=== PATIENT | male | born 1965 | race African-American/Black ===

== ENCOUNTER → 2018-01-22 11:57 | Outpatient (CLI) | payer BC, SELFPAY ==
[2018-01-22 14:17] LABS: ALB/GLOB Ratio 1.1 RATIO (0.9-2.4); AST(SGOT) 23 U/L (15-37); Alanine Aminotransfer ALT/SGPT 44 U/L (16-61); Albumin, Serum 4.2 g/dL (3.2-5.0); Alkaline Phosphatase 103 U/L (45-117); Anion Gap 10 (5-15); BUN 12 mg/dL (7-18); BUN/Creat Ratio 11.9 RATIO (10-20); Calcium,Total 9.6 mg/dL (8.5-10.1); Chloride 97 mmol/L (98-107); Cholesterol 199 mg/dL (200); Creatinine, Serum 1.01 mg/dL (0.70-1.30); EST Glomerular Filtration Rate 82 mL/min (>60); Est Glom Filt Rate - Afr Amer 100 mL/min (>60); GGTP 157 U/L (15-85); Globulin 3.8 g/dL (2.2-4.2); Glucose 83 mg/dL (74-106); High Density Lipoprotein 75 mg/dL; Potassium 4.1 mmol/L (3.5-5.1); Sodium Level 138 mmol/L (136-145); Triglycerides 170 mg/dL; Very Low Density Lipoprotein 34 mg/dL (5-40)
[2018-01-22 14:33] LABS: Microalbumin,Random Urine < 5.0 mg/L (NO RANGE EST.)
== END ==
PROVIDERS: Family Provider Family Medicine; PCP Family Medicine; Visit Provider Family Medicine
DX: I10 Essential (primary) hypertension (principal); R79.89 Other specified abnormal findings of blood chemistry; R94.5 Abnormal results of liver function studies
CPT/HCPCS: 36415; 80053; 80061; 82043; 82570; 82977

== ENCOUNTER 2019-05-18 12:05 | Emergency (ER) | payer BC, SELFPAY ==
[2019-05-18 12:05] VITALS: BP 180/112; PULSE 78; RESP 16; TEMP 36.7; O2SAT 97; BMI 31.3
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
--- NOTE | 2019-05-18 12:28 | EKG12_ITS ---
Test Reason : CP Blood Pressure : / mmHG Vent. Rate : 066 BPM Atrial Rate : 066 BPM P-R Int : 156 ms QRS Dur : 102 ms QT Int : 426 ms P-R-T Axes : 015 -14 005 degrees QTc Int : 446 ms Normal sinus rhythm Normal ECG Confirmed by JAMAR OLIVARES, PRABHAKAR ([id number]), newspaper editor ANDREY COOPER ([id number]) on 05/21/2019 11:38:00 AM Referred By: SERGEY Confirmed By:PRABHAKAR ROLDAN MD
[2019-05-18 12:42] LABS: Absolute Lymphocyte Count 1.71 X10^3/uL (0.83-4.51); Absolute Neutrophil Count 3.5 X10^3/uL (2.0-7.7); Basophil# 0.03 X10^3/uL; Basophil% 0.5 % (0-1); Eosinophil# 0.05 X10^3/uL; Eosinophils% 0.9 % (0-5); Hematocrit 40.9 % (40-54); Hemoglobin 13.9 g/dL (13.0-16.5); Lymphocyte # 1.71 X10^3/ul (4.0); Lymphocyte % 29.7 % (19-41); Mean Corpuscular Hgb 32.2 pg (27.0-32.0); Mean Corpuscular Volume 94.7 fL (80-94); Mean Platelet Vol. 9.7 fl (6.2-12.0); Monocyte# 0.48 X10^3/uL; Monocyte% 8.3 % (0-10); NRBC Flagged by Analyzer 0 % (0-5); Neutrophil # 3.46 X10^3/uL (2.7-7.7); Neutrophil % 60.3 % (47-70); Platelet Count 195 K/mm3 (150-450); RBC Distribution Width CV 11.6 % (11.6-14.6); RBC Distribution Width SD 40.3 fl (35.1-43.9); Red Blood Count 4.32 M/mm3 (4.6-6.2); White Blood Count 5.8 K/mm3 (4.4-11.0)
[2019-05-18 12:46] VITALS: BP 165/123
[2019-05-18 12:57] LABS: Anion Gap 8 (5-15); BUN 10 mg/dL (7-18); BUN/Creat Ratio 13.1 RATIO (10-20); Calcium,Total 9.3 mg/dL (8.5-10.1); Chloride 103 mmol/L (98-107); Creatinine, Serum 0.76 mg/dL (0.70-1.30); EST Glomerular Filtration Rate 114 mL/min (>60); Est Glom Filt Rate - Afr Amer 138 mL/min (>60); Estimated Creatinine Clearance 105.09 ml/min; Glucose 92 mg/dL (74-106); Potassium 3.6 mmol/L (3.5-5.1); Sodium Level 139 mmol/L (136-145)
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
--- NOTE | 2019-05-18 14:16 | ED.DEP ---
ED Disposition - Plan for ED Patient: Instructions: Neck Sprain/Strain Prescriptions: Oxycodone HCl/Acetaminophen [Percocet 5/325] 1 tab PO Q6H PRN PRN 3 Days #12 tab PRN Reason: Pain Prescription Printed Referrals: Alexandre Hanna MD [Primary Care Provider] -
[2019-05-18 14:21] VITALS: BP 191/113; PULSE 78; RESP 16; O2SAT 98
--- NOTE | 2019-05-18 14:23 | ED.RN ---
PT STATES HE HAS HYPERTENSION, IS SUPPOSED TO TAKE A MED BUT STATES I READ THE SIDE EFFECTS AND AM NOT TAKING THAT STUFF. AND THIS RN EDUCATED ON RISKS OF HYPERTENSION SEVERAL TIMES, PT VOICES UNDERSTANDING, STATES HE WILL FOLLOW UP WITH PCP, DECLINES BP MEDS IN ED.
== END 2019-05-18 14:25 | disposition home or self-care (01) ==
LOC: ED 12:27
PROVIDERS: Emergency Provider Emergency Medicine; Family Provider Family Medicine; PCP Family Medicine
DX: S06.0X0A Concussion without loss of consciousness, initial encounter (principal); S29.8XXA Other specified injuries of thorax, initial encounter; V89.2XXA Person injured in unspecified motor-vehicle accident, traffic, initial encounter; Y93.89 Activity, other specified; F17.200 Nicotine dependence, unspecified, uncomplicated
CPT/HCPCS: 70450; 71260; 72125; 74177; 80048; 84484; 85025; 93005; 99283; Q9967; A4216

== ENCOUNTER → 2020-03-15 09:48 | Outpatient (CLI) | payer BC, SELFPAY ==
[2020-03-15 13:34] LABS: HIV - WCH Non-Reactive (Nonreactive); Hepatitis B Surface Antigen Non-Reactive (Nonreactive)
[2020-03-15 15:50] LABS: BUN 6 mg/dL (7-18); Glucose 88 mg/dL (74-106)
[2020-03-15 15:51] LABS: ALB/GLOB Ratio 0.7 RATIO (0.9-2.4); AST(SGOT) 44 U/L (15-37); Alanine Aminotransfer ALT/SGPT 100 U/L (16-61); Albumin, Serum 3.3 g/dL (3.2-5.0); Alkaline Phosphatase 171 U/L (45-117); Anion Gap 7 (5-15); Calcium,Total 9.7 mg/dL (8.5-10.1); Chloride 104 mmol/L (98-107); Cholesterol 174 mg/dL (200); Creatinine, Serum 0.88 mg/dL (0.70-1.30); Globulin 4.5 g/dL (2.2-4.2); Potassium 3.8 mmol/L (3.5-5.1); Protein, Total 7.8 g/dL (6.4-8.2); Sodium Level 138 mmol/L (136-145); Triglycerides 140 mg/dL; Very Low Density Lipoprotein 28 mg/dL (5-40)
[2020-03-15 15:52] LABS: High Density Lipoprotein 59 mg/dL
[2020-03-15 16:17] LABS: BUN/Creat Ratio 6.9 RATIO (10-20); EST Glomerular Filtration Rate 97 mL/min (>60); Est Glom Filt Rate - Afr Amer 117 mL/min (>60)
[2020-03-17 03:07] LABS: Chlamydia By Nucleic Acid AMP Negative (Negative); Gonococcus By Nucleic Acid AMP Negative (Negative)
[2020-03-17 05:05] LABS: Hepatitis B Core AB IgM Negative (Negative)
[2020-03-18 05:23] LABS: Rapid Plasmin Reagin (RPR) NONREACTIVE (NONREACTIVE)
== END ==
PROVIDERS: PCP Family Medicine; Referring Provider Family Medicine; Visit Provider Family Medicine
DX: R97.20 Elevated prostate specific antigen [PSA] (principal); R79.89 Other specified abnormal findings of blood chemistry; Z71.1 Person with feared health complaint in whom no diagnosis is made; Z13.220 Encounter for screening for lipoid disorders
CPT/HCPCS: 36415; 80053; 80061; 84153; 86592; 86703; 86705; 87340; 87491; 87591; G0103

== ENCOUNTER → 2020-04-14 09:47 | Outpatient (CLI) | payer BC, SELFPAY ==
[2020-04-14 12:49] LABS: AST(SGOT) 10 U/L (15-37); Alanine Aminotransfer ALT/SGPT 35 U/L (16-61); Alkaline Phosphatase 105 U/L (45-117); Bilirubin, Direct 0.19 mg/dL (0.00-0.30); Globulin 3.6 g/dL (2.2-4.2); PSA,Total- Diagnostic 1.03 ng/mL (0.0-4.0); Protein, Total 7.6 g/dL (6.4-8.2)
== END ==
PROVIDERS: PCP Family Medicine; Referring Provider Family Medicine; Visit Provider Family Medicine
DX: R79.89 Other specified abnormal findings of blood chemistry (principal); R97.20 Elevated prostate specific antigen [PSA]
CPT/HCPCS: 36415; 80076; 84153

== ENCOUNTER → 2020-05-25 15:26 | Outpatient (CLI) | payer BC, SELFPAY ==
[2020-05-25 18:14] LABS: Anion Gap 7 (5-15); BUN 37 mg/dL (7-18); BUN/Creat Ratio 21.5 RATIO (10-20); Calcium,Total 9.6 mg/dL (8.5-10.1); Chloride 103 mmol/L (98-107); Creatinine, Serum 1.72 mg/dL (0.70-1.30); EST Glomerular Filtration Rate 44 mL/min (>60); Est Glom Filt Rate - Afr Amer 54 mL/min (>60); Glucose 86 mg/dL (74-106); Potassium 3.9 mmol/L (3.5-5.1); Sodium Level 136 mmol/L (136-145)
== END ==
PROVIDERS: PCP Family Medicine; Visit Provider Family Medicine
DX: I10 Essential (primary) hypertension (principal)
CPT/HCPCS: 36415; 80048

== ENCOUNTER → 2020-06-28 16:04 | Outpatient (CLI) | payer BC, SELFPAY ==
[2020-06-28 18:05] LABS: Anion Gap 5 (5-15); BUN 17 mg/dL (7-18); BUN/Creat Ratio 17.5 RATIO (10-20); Calcium,Total 9.5 mg/dL (8.5-10.1); Chloride 104 mmol/L (98-107); Creatinine, Serum 0.97 mg/dL (0.70-1.30); EST Glomerular Filtration Rate 85 mL/min (>60); Est Glom Filt Rate - Afr Amer 103 mL/min (>60); Glucose 87 mg/dL (74-106); Potassium 4.2 mmol/L (3.5-5.1); Sodium Level 139 mmol/L (136-145)
== END ==
PROVIDERS: PCP Family Medicine; Visit Provider Family Medicine
DX: N18.9 Chronic kidney disease, unspecified (principal)
CPT/HCPCS: 36415; 80048

== ENCOUNTER → 2021-05-25 16:18 | Outpatient (CLI) | payer BC, SELFPAY ==
[2021-05-25 19:20] LABS: Chlamydia Trachomatis by PCR Negative (Negative); Neisserai gonorrhoeae by PCR Negative (Negative); Probe Check PASS; Sample Adequacy Control PASS; Specimen Processing Control PASS
[2021-05-26 08:54] LABS: HIV - WCH Non-Reactive (Nonreactive); Syphilis Antibodies Non-reactive
[2021-05-27 13:08] LABS: Hepatitis B Core Ab Total Negative (Negative); Hepatitis Be Ab Negative (Negative)
[2021-05-27 17:07] LABS: Hepatitis B Core AB IgM Negative (Negative)
== END ==
LOC: MFPLAB 16:26
PROVIDERS: PCP Family Medicine; Referring Provider Family Medicine; Visit Provider Family Medicine
DX: Z20.2 Contact with and (suspected) exposure to infections with a predominantly sexual mode of transmission (principal)
CPT/HCPCS: 36415; 86703; 86704; 86705; 86707; 86780; 87491; 87591

== ENCOUNTER → 2021-06-02 14:03 | Outpatient (CLI) | payer BC, SELFPAY ==
[2021-06-02 15:25] LABS: ALB/GLOB Ratio 0.9 RATIO (0.9-2.4); AST(SGOT) 30 U/L (15-37); Alanine Aminotransfer ALT/SGPT 52 U/L (16-61); Albumin, Serum 3.7 g/dL (3.2-5.0); Alkaline Phosphatase 101 U/L (45-117); Anion Gap 8 (5-15); BUN 8 mg/dL (7-18); BUN/Creat Ratio 10.2 RATIO (10-20); Calcium,Total 8.9 mg/dL (8.5-10.1); Chloride 97 mmol/L (98-107); Cholesterol 178 mg/dL (200); Creatinine, Serum 0.78 mg/dL (0.70-1.30); EST Glomerular Filtration Rate 109 mL/min (>60); Est Glom Filt Rate - Afr Amer 132 mL/min (>60); Glucose 93 mg/dL (74-106); High Density Lipoprotein 83 mg/dL; PSA,Total- Diagnostic 0.62 ng/mL (0.0-4.0); Potassium 3.6 mmol/L (3.5-5.1); Protein, Total 7.7 g/dL (6.4-8.2); Sodium Level 133 mmol/L (136-145); Triglycerides 139 mg/dL; Very Low Density Lipoprotein 28 mg/dL (5-40)
== END ==
PROVIDERS: PCP Family Medicine; Referring Provider Family Medicine; Visit Provider Family Medicine
DX: I10 Essential (primary) hypertension (principal); R97.20 Elevated prostate specific antigen [PSA]
CPT/HCPCS: 36415; 80053; 80061; 84153

== ENCOUNTER → 2021-11-23 | Outpatient (CLI) | payer BC, SELFPAY ==
[2021-11-23 17:49] LABS: ALB/GLOB Ratio 1.2 RATIO (0.9-2.4); AST(SGOT) 17 U/L (15-37); Alanine Aminotransfer ALT/SGPT 38 U/L (16-61); Albumin, Serum 4.1 g/dL (3.2-5.0); Alkaline Phosphatase 94 U/L (45-117); Anion Gap 6 (5-15); BUN 25 mg/dL (7-18); BUN/Creat Ratio 20.8 RATIO (10-20); Calcium,Total 9.6 mg/dL (8.5-10.1); Chloride 107 mmol/L (98-107); EST Glomerular Filtration Rate 67 mL/min (>60); Est Glom Filt Rate - Afr Amer 81 mL/min (>60); Globulin 3.4 g/dL (2.2-4.2); Glucose 106 mg/dL (74-106); Potassium 4.1 mmol/L (3.5-5.1); Protein, Total 7.5 g/dL (6.4-8.2); Sodium Level 141 mmol/L (136-145)
== END | disposition home or self-care (01) ==
LOC: MFPLAB 15:54
PROVIDERS: PCP Family Medicine; Visit Provider Family Medicine
DX: I10 Essential (primary) hypertension (principal)
CPT/HCPCS: 36415; 80053

== ENCOUNTER → 2022-03-20 | Outpatient (CLI) | payer BC, SELFPAY ==
[2022-03-20 10:22] LABS: AST(SGOT) 20 U/L (15-37); Alanine Aminotransfer ALT/SGPT 51 U/L (16-61); Albumin, Serum 3.7 g/dL (3.2-5.0); Alkaline Phosphatase 104 U/L (45-117); Bilirubin, Direct 0.07 mg/dL (0.00-0.30); Globulin 3.7 g/dL (2.2-4.2); Protein, Total 7.4 g/dL (6.4-8.2)
[2022-03-20 10:59] LABS: Hepatitis C Antibody Non-Reactive (Nonreactive)
== END | disposition home or self-care (01) ==
LOC: MFPLAB 08:35
PROVIDERS: PCP Family Medicine; Referring Provider Family Medicine; Visit Provider Family Medicine
DX: Z20.5 Contact with and (suspected) exposure to viral hepatitis (principal)
CPT/HCPCS: 36415; 80076; 86803

== ENCOUNTER 2022-12-25 11:02 | Emergency (ER) | payer BC, SELFPAY ==
[2022-12-25 11:02] VITALS: BP 204/129; PULSE 79; RESP 16; TEMP 36.3; O2SAT 100; BMI 32.5
--- NOTE | 2022-12-25 11:42 | ED.VIS.BACK ---
HPI History of Present Illness Chief Complaint: Back Informant: patient and spouse/S.O. Onset/Context/Timing Onset: Days Context: Gradual Onset Timing: Continuous Quality: Sharp Location: Buttock and Left Leg Current Severity: Moderate Maximum Severity: Moderate Worsened by: improves with Movement Relieved by: Remaining Still and - (Lying on his abdomen improves the pain.) Associated Symptoms Associated Symptoms: Radiation to Left Leg; Negative for Numbness, Tingling, Radiation to Right Leg, Fever, Abdominal Pain, Dysuria, Unable to Ambulate, Unable to Transfer, Urinary Retention, Urinary Incontinence, Constipation or Fecal Incontinence Narrative Narrative: 51-year-old male history of hypertension. States he has had surgery to his right knee for a prior quadriceps patellar tendon. His right knee has been giving him some discomfort so he has been gingerly walking on it and favoring his left leg. Said he believes he set himself up he started getting back pain now he has pain radiating down his left hamstring to his left foot. Denies any weakness or numbness. No back trauma. No fever. No bowel or bladder incontinence. No leg weakness or numbness. Prior similar symptoms: No Recent Illness/Hospitalization: No PFSH [facility] Medical History Hypertension Home Medications oxycodone-acetaminophen 5 mg-325 mg tablet (Percocet) 1 tab PO Q4H PRN pain 5 days #20 tabs 12/25/22 [Rx Last Taken Unknown] prednisone 20 mg tablet 40 mg (2 x 20 mg) PO DAILY 9 days #18 tabs 12/25/22 [Rx Last Taken Unknown] Allergy/AdvReac Type Severity Reaction Status Date / Time No Known Allergies Allergy Verified 12/25/22 11:04 Social History Smoking Status: Former smoker ROS ROS ED ROS Narrative Denies recent illness. Left buttock pain radiating down his foot. Review of Systems ROS Unobtainable: Denies due to encephalopathy Constitutional Constitutional ED: Denies chills or fever(s) Eyes Eyes: Denies blurry vision ENT ENT ED: Denies ear pain Cardiovascular Cardiovascular: Denies chest pain Respiratory/Chest Respiratory/Chest: Denies dyspnea Gastrointestinal Gastrointestinal: Denies abdominal pain, constipation, diarrhea, melena, nausea or vomiting Genitourinary Genitourinary ED: Denies dysuria or hematuria Musculoskeletal Musculoskeletal: Reports back pain; Denies arthralgias, myalgias or neck pain Integumentary Denies abscess Neurologic Neurologic: Denies headache(s) Psychiatric Psychiatric: Denies anxiety Endocrine Endocrinology: Denies cold intolerance Hematologic/Lymphatic Hematologic/Lymphatic: Denies easy bleeding or easy bruising Allergic/Immunologic Allergic/Immunologic ED: Denies mouth swelling or tongue swelling EXAM Physical Exam Narrative Exam Narrative: Well-appearing 57-year-old male. Lying flat in bed. Significant other at bedside. Vital signs are stable blood pressure elevated 204 129 out of the recheck. H EENT exam unremarkable. Neck nontender. Lungs clear to auscultation bilaterally. Heart regular rate and rhythm rate about 80 no murmur. Chest wall nontender. Abdomen soft nontender. No peritoneal signs. No pulsatile mass. Moving all 4 extremities. Neurovascular intact. Positive straight leg raise on the left. Dorsi plantarflexion intact. 5 out of 5 strength. No cauda equina. No saddle anesthesia. Normal medial thigh sensation bilaterally. Normal sensation of both lower legs. Back exam he is tenderness over his left SI joint left buttock. The spine itself is nontender. There is no redness or warmth. No bruising or signs of trauma. Neurologic exam is awake and alert with no focal motor or sensory deficits. NIH is 0. Const Vital Signs: 12/25/22 11:02 12/25/22 11:02 Temperature 97.4 F L Temperature Source Temporal Pulse Rate 79 Respiratory Rate 16 Blood Pressure 204/129 H Blood Pressure Mean 154 Pulse Ox 100 Oxygen Delivery Method Room Air Positive well nourished and well developed; Negative for cachectic, contractures or unkempt General Appearance ED: well developed and NAD; Negative for unkempt, cachectic, contractures or pallor Nutritional Appearance: Negative for cachectic HEENT Reports moist mucous membranes; Denies dry mucous membranes Negative for trauma or tenderness Mouth ED: No dry mucous membranes Mouth: No dry mucous membranes Eyes PERRL and EOMs intact bilaterally General Eye ED: Negative for pale conjunctiva, scleral icterus or other Neck no lymphadenopathy, supple and no JVD General: Negative for tenderness Thyroid: Negative for other Resp normal respiratory effort and clear to auscultation bilaterally Effort and Inspection: Negative for pain with movement Auscultation: Negative for rales, rhonchi, wheezes or diminished lung sounds Cardio regular rate, regular rhythm, S1 normal heart sound, S2 normal heart sound and no murmurs Palpation: Negative for palpable S3 Rate: Negative for bradycardia or tachycardic Rhythm: Negative for abnormal rhythm Bruits: Negative for other GI normal to inspection, nondistended, normoactive bowel sounds, soft to palpation, non-tender, non-distended and no masses Inspection: Negative for abdominal distention Auscultation: Negative for hyperactive bowel sounds Palpation: Negative for tender, guarding, mass or pulsatile mass Bladder / Kidney Exam: No other Back/Spine normal to inspection and no thoracic nor lumbar tenderness Back/Spine Narrative: Tenderness over left SI joint. Positive straight leg raise on the left. Both lower extremities have 5-5 motor strength. Dorsi plantarflexion.. No saddle anesthesia. General Back: Negative for CVA tenderness Cervical Spine: Negative for cervical spine tenderness and Negative for paracervical muscle tenderness Thoracic Spine / Upper Back: Negative for paraspinal muscle tenderness Lumbar Spine / Lower Back: straight leg raise positive - left; Negative for ROM limited or straight leg raise negative bilaterally Extremity normal to inspection and no clubbing, cyanosis or edema General Extremety ED: Negative for edema or tenderness General Extremity: Negative for edema Neuro oriented x3 and no sensory deficits noted Sensorium / Orientation: Negative for alert, confused, lethargic or stuporous Sensory Exam: No other Motor Exam: strength 5/5 throughout Psych mental status grossly normal Appearance: Negative for unkempt Attitude: No agitated Mood & Affect: Negative for depressed, sad or tearful Skin no rashes or lesions noted and no wounds General Skin Exam: Negative for jaundice or pallor Lesions: No lesion noted Rashes: No rashes noted Trauma: Negative for abrasion or puncture Wounds: Negative for wounds noted MDM MDM MDM Narrative Medical decision making narrative: 59-year-old male with atraumatic left buttock pain radiating down to his left foot consistent with acute sciatica. No loss of strength or sensation in his lower legs. He does not need any imaging there is been no trauma. No fever. We will treat his acute left sciatica. Prednisone 60 mg here 40 mg a day for 9 days. Percocet for pain 20 no refill. Follow-up with not improving. Return if worse. History & Record Review Discussion w/independent historian: Patient and Family Additional record(s) reviewed:: Prior inpatient record, Prior outpatient record, Prior ED visit and Prior labs Discharge Plan Triage Chief Complaint: Back ED Provider: Wayne Caceres Dx/Rx/DC Orders Clinical Impression: Left sided sciatica Instructions: ED Sciatica Prescriptions: New oxycodone-acetaminophen [Percocet] 5-325 mg tablet 1 tab PO Q4H PRN (Reason: pain) 5 Days Qty: 20 0RF prednisone 20 mg tablet 40 mg PO DAILY 9 Days Qty: 18 0RF Primary Care Provider: Alexandre Hanna Referrals: Alexandre Hanna MD [Primary Care Provider] - 1 Week if not improving Activity Restrictions/Additional Instructions: Prednisone 40 mg a day for the next 9 days starting tomorrow. Percocet for pain. Plenty of fluids and fiber to prevent constipation. No driving or use of alcohol while using the Percocet. Ice to your left posterior buttock area to help decrease inflammation. This should progressively improve follow-up with your doctor if not improving. Return if weakness in your legs or incontinence. Disposition Disposition: Home, Self Care
[2022-12-25 11:50] VITALS: BP 205/124
[2022-12-25] MEDS: Oxycodone/Apap 5/325 Tablet PO (11:59)
[2022-12-25] MEDS: predniSONE 20 MG Tablet 60 MG PO (11:59)
[2022-12-25 12:03] VITALS: BP 167/126; RESP 17
== END 2022-12-25 12:24 | disposition home or self-care (01) ==
LOC: ED 11:52
PROVIDERS: Emergency Provider Emergency Medicine; PCP Family Medicine; Visit Provider Emergency Medicine
DX: M54.32 Sciatica, left side (principal); Z87.891 Personal history of nicotine dependence
CPT/HCPCS: 99283

== ENCOUNTER 2023-01-01 13:42 | Emergency (ER) | payer BC, SELFPAY ==
[2023-01-01 13:43] VITALS: BP 221/141; PULSE 80; RESP 18; TEMP 36.3; O2SAT 97
--- NOTE | 2023-01-01 14:19 | RAD_ITS ---
STUDY: X-RAY - LUMBAR SPINE REASON FOR EXAM: Male, 57 years old. Worsening left-sided back pain. TECHNIQUE: 3 view(s) of the lumbar spine were obtained. COMPARISON: None FINDINGS: There is straightening of the normal lumbar lordosis. There is a mild levoscoliosis of the lumbar spine. There is a normal alignment of the vertebrae. There is multilevel endplate spondylosis of the lumbar vertebrae. There is multi-level degenerative disc disease with multi-level disc space narrowing. Facet joint osteoarthritis. The soft tissue structures are unremarkable. RAD/Lumbar Spine 2 or 3 Views IMPRESSION: Degenerative changes of the spine, as detailed above. Mild levoscoliosis. Loss of the normal lumbar lordosis. Electronically Signed: Kelvin Calloway MD at 15:03 EDT ,
[2023-01-01] MEDS: Orphenadrine 60 MG/2 ML Ampul IM (14:25)
[2023-01-01] MEDS: Morphine 4 MG/ML Syringe IM (14:25)
--- NOTE | 2023-01-01 14:29 | ED.VIS.BACK ---
HPI History of Present Illness Chief Complaint: Back Informant: patient Onset/Context/Timing Onset: Weeks (1) Context: Gradual Onset Timing: Continuous Quality: Sharp Location: Lumbar, Buttock and Left Leg Worsened by: improves with Ambulation and - (Weightbearing) Relieved by: - (TENS unit) Associated Symptoms Associated Symptoms: Numbness, Tingling and Radiation to Left Leg; Negative for Radiation to Right Leg, Fever, Abdominal Pain, Dysuria, Unable to Ambulate, Unable to Transfer, Urinary Retention, Urinary Incontinence, Constipation or Fecal Incontinence Narrative Narrative: Patient presents with back pain that began 1 week ago. Patient states he was seen here at that time. Patient states he was diagnosed with sciatica. Patient states he was given prescriptions for prednisone and Percocet. Patient states he has been taking these with minimal relief. Patient states he has been having difficulty ambulating due to the pain. Patient denies any weakness. Patient admits to some numbness and tingling down his left leg. Patient states his pain gets better with a TENS unit. Patient denies any abdominal pain. Patient denies any bowel or bladder changes. Patient denies any saddle anesthesia. [facility] Medical History (Updated 01/01/23 @ 15:[address] Celso Wiley DO) Hypertension Home Medications oxycodone-acetaminophen 5 mg-325 mg tablet (Percocet) 1 tab PO Q4H PRN pain 5 days #20 tabs 12/25/22 [Rx Last Taken Unknown] prednisone 20 mg tablet 40 mg (2 x 20 mg) PO DAILY 9 days #18 tabs 12/25/22 [Rx Last Taken Unknown] cyclobenzaprine 10 mg tablet 10 mg PO QHS PRN PRN Muscle Spasm #20 TABLETS 01/01/23 [Rx Last Taken Unknown] oxycodone-acetaminophen 5 mg-325 mg tablet 1 tab PO Q6H PRN PRN Pain 3 days #12 TABLETS 01/01/23 [Rx Last Taken Unknown] Allergy/AdvReac Type Severity Reaction Status Date / Time No Known Allergies Allergy Verified 01/01/23 13:43 Surgical History (Updated 01/01/23 @ 14:[address] Celso Wiley DO) Hx of eye surgery Hx of knee surgery Hx of shoulder surgery Social History Smoking Status: Former smoker ROS ROS ED Constitutional Constitutional ED: Denies chills or fever(s) Eyes Eyes: Denies blurry vision or change in vision ENT ENT ED: Denies rhinorrhea or sore throat Cardiovascular Cardiovascular: Denies chest pain or palpitations Respiratory/Chest Respiratory/Chest: Denies cough or dyspnea Gastrointestinal Gastrointestinal: Denies nausea or vomiting Genitourinary Genitourinary ED: Denies dysuria or hematuria Musculoskeletal Musculoskeletal: Reports back pain; Denies neck pain Integumentary Denies abscess or rash Neurologic Neurologic: Denies headache(s) or weakness Allergic/Immunologic Allergic/Immunologic ED: Denies mouth swelling or urticaria EXAM Physical Exam Const Vital Signs: 01/01/23 13:43 01/01/23 15:24 Temperature 97.3 F L Temperature Source Temporal Pulse Rate 80 70 Respiratory Rate 18 16 Blood Pressure 221/141 H 194/144 H Blood Pressure Mean 167 160 Pulse Ox 97 98 Oxygen Delivery Method Room Air Room Air Positive well nourished and well developed General Appearance ED: well developed and NAD HEENT Reports moist mucous membranes Neck supple and no JVD Back/Spine Back/Spine Narrative: There is tenderness over the left lumbar paraspinal muscles and sciatic notch. There is some mild tenderness over the left sacroiliac joint. There is no bony crepitance or step-off. Range of motion was limited in all motions of the lumbar spine secondary to pain. Strength is 5/5 bilaterally in the lower extremities. There are no sensory deficits noted. Deep tendon reflexes are 2/4 bilaterally in the lower extremities. Lumbar Spine / Lower Back: ROM limited and straight leg raise negative bilaterally Extremity normal to inspection General Extremety ED: Negative for edema or tenderness General Extremity: Negative for edema Neuro oriented x3 and no sensory deficits noted Sensorium / Orientation: alert Motor Exam: strength 5/5 throughout Deep Tendon Reflexes: Rt Patellar (L4): 2+, Lt Patellar (L4): 2+, Rt Ankle (S1): 2+ and Lt Ankle (S1): 2+ Deep Tendon Reflexes Back: Rt Patellar (L4): 2+, Lt Patellar (L4): 2+, Rt Ankle (S1): 2+ and Lt Ankle (S1): 2+ Psych mental status grossly normal MDM MDM MDM Narrative Medical decision making narrative: Differential diagnosis includes degenerative arthritis, lumbosacral strain, sciatica, and lumbar radiculopathy. Since this is the patient's repeat visit, x-rays of the lumbar spine will be obtained to assess for spondylolisthesis, compression fracture, and degenerative arthritis. History & Record Review Discussion w/independent historian: Patient and Family Additional record(s) reviewed:: Prior ED visit Radiography Diagnostic Testing: Clinical Impression(s) from Imaging Studies Lumbar Spine X-Ray 01/01/23 14:19 IMPRESSION: Degenerative changes of the spine, as detailed above. Mild levoscoliosis. Loss of the normal lumbar lordosis. Electronically Signed: Kelvin Calloway MD at 15:03 EDT , X-rays of the lumbar spine were obtained. There are 3 views. On my independent interpretation, there are some degenerative changes. There is no acute fracture or spondylolisthesis noted. Radial just also interpreted the x-ray and agrees. Treatment and Re-Evaluation Narrative: Patient was given injection of morphine and Norflex here. Patient was given prescriptions for Percocet and Flexeril. Patient was instructed to continue the prednisone as prescribed. Patient was instructed to follow-up with his primary care physician in 3 to 5 days for further evaluation. Patient understood and was agreeable with the plan. All questions were answered. Discharge Plan Triage Chief Complaint: Back ED Provider: Celso Wiley Dx/Rx/DC Orders Clinical Impression: Left sided sciatica Instructions: ED Sciatica Prescriptions: New oxycodone-acetaminophen [oxycodone-acetaminophen] 5-325 mg tablet 1 tab PO Q6H PRN PRN (Reason: Pain) 3 Days Qty: 12 0RF cyclobenzaprine [cyclobenzaprine] 10 mg tablet 10 mg PO QHS PRN PRN (Reason: Muscle Spasm) Qty: 20 0RF No Action oxycodone-acetaminophen [Percocet] 5-325 mg tablet 1 tab PO Q4H PRN (Reason: pain) 5 Days Qty: 20 0RF prednisone 20 mg tablet 40 mg PO DAILY 9 Days Qty: 18 0RF Primary Care Provider: Alexandre Hanna Referrals: Alexandre Hanna MD [Primary Care Provider] - 3-5 Days Disposition Disposition: Home, Self Care
[2023-01-01 15:24] VITALS: BP 194/144; PULSE 70; RESP 16; O2SAT 98
--- NOTE | 2023-01-01 16:04 | NURSING ---
Per pt he has BP meds at home that he is supposed to take but has not taken them in months. This RN had a long discussion with patient regarding the importance of taking his BP meds.
== END 2023-01-01 16:15 | disposition home or self-care (01) ==
PROVIDERS: Emergency Provider Emergency Medicine; PCP Family Medicine; Visit Provider Emergency Medicine
DX: M54.32 Sciatica, left side (principal); Z87.891 Personal history of nicotine dependence
CPT/HCPCS: 72100; 96372; 99282

== ENCOUNTER 2023-01-19 10:30 | Outpatient (RCR) | payer BC, SELFPAY | END 2023-01-19 19:00 | disposition home or self-care (01) | LOC: PT 10:30 | PROVIDERS: PCP Family Medicine; Referring Provider Family Medicine; Visit Provider Family Medicine | DX: M54.42 Lumbago with sciatica, left side (principal) | CPT/HCPCS: 97014; 97032; 97035; 97110; 97140; 97162; 97530; G0283 ==

== ENCOUNTER → 2023-01-30 | Outpatient (CLI) | payer BC, SELFPAY ==
--- NOTE | 2023-01-30 06:32 | MRI_ITS ---
STUDY: MRI LUMBAR SPINE WITHOUT CONTRAST REASON FOR EXAM: Male, 58 years old. RADICULOPATHY, left sided sciatica TECHNIQUE: Standardized fat and water weighted pulse sequences were obtained in the sagittal and axial planes. COMPARISON: Lumbar spine radiographs 01/01/2023. CT abdomen and pelvis with contrast 05/18/2019. FINDINGS: T11-T12 and T12-L1: Normal endplates. Normal disc height, hydration and morphology. Normal bilateral facet joints. Normal central canal and bilateral lateral recesses. Normal bilateral intervertebral neural foramina. Normal lumbar lordosis. There is no substantial scoliosis. Normal conus medullaris that terminates at the upper L1 vertebral body level. L1-2: Normal endplates. Normal disc height, hydration and morphology. Normal bilateral facet joints. Normal central canal and bilateral lateral recesses. Normal bilateral intervertebral neural foramina. L2-3: Normal endplates. Normal disc height, hydration and morphology. Normal bilateral facet joints. Normal central canal and bilateral lateral recesses. Normal bilateral intervertebral neural foramina. L3-4: Modic type II degenerative vertebral marrow fat infiltration underneath the right side of the vertebral endplates. Mild disc space height narrowing. Mild right-sided posterior bulging annulus. No significant facet arthropathy. Prominent dorsal epidural lipomatosis. Mild central canal stenosis with an AP canal diameter of 9 mm. Normal bilateral lateral recesses. Normal left intervertebral neural foramen. Mild stenosis of the right intervertebral neural foramen L4-5: Normal endplates. Mild disc space height narrowing. Minimal ventral extradural defect due to posterior bulging annulus with calcification of the posterior annulus on CT. This is unchanged. No significant facet arthropathy. Mild dorsal epidural lipomatosis. Mild central canal stenosis with an AP canal diameter of 9 mm. Normal bilateral lateral recesses. Normal bilateral intervertebral neural foramina. L5-S1: Mild Modic type II degenerative vertebral marrow fat infiltration underneath the vertebral endplates. Minimal disc space height narrowing with minimal degenerative vacuum phenomenon. Mild to moderate left degenerative facet arthropathy. Mild right degenerative facet arthropathy. Normal central canal surrounded by epidural lipomatosis. Normal bilateral lateral recesses. Normal bilateral intervertebral neural foramina. Normal visualized sacral ala. Normal visualized paraspinous soft tissue structures. MRI/Spine Lumbar (Routine) IMPRESSION: 1. Mild central canal stenosis at L4-L5 disc space level with small posterior bulging annulus. The AP canal diameter is 9 mm. Calcification of the posterior bulging annulus is obvious only on CT abdomen and pelvis of 05/18/2019. 2. Mild central canal stenosis at L3-L4 disc space level with an AP canal diameter of 9 mm, right posterior bulging annulus and mild stenosis of the right intervertebral neural foramen. 3. Mild asymmetric L5-S1 degenerative facet arthropathy, left greater than right. 4. No suspicious lumbar extruded disc fragment or disc protrusion. Electronically Signed: Vadim Mccarthy MD at 16:19 EDT ,
== END | disposition home or self-care (01) ==
PROVIDERS: PCP Family Medicine; Referring Provider Family Medicine; Visit Provider Family Medicine
DX: M54.30 Sciatica, unspecified side (principal)
CPT/HCPCS: 72148

== ENCOUNTER → 2023-04-24 | Outpatient (CLI) | payer BC, SELFPAY ==
[2023-04-24 12:48] LABS: ALB/GLOB Ratio 1.1 RATIO (0.9-2.4); AST(SGOT) 14 U/L (15-37); Alanine Aminotransfer ALT/SGPT 37 U/L (16-61); Albumin, Serum 3.9 g/dL (3.2-5.0); Alkaline Phosphatase 102 U/L (45-117); Anion Gap 5 (5-15); BUN 13 mg/dL (7-18); BUN/Creat Ratio 11.9 RATIO (10-20); Calcium,Total 9.3 mg/dL (8.5-10.1); Chloride 103 mmol/L (98-107); Cholesterol 207 mg/dL (200); Creatinine, Serum 1.09 mg/dL (0.70-1.30); EST Glomerular Filtration Rate 74 mL/min (>60); Est Glom Filt Rate - Afr Amer 90 mL/min (>60); Globulin 3.5 g/dL (2.2-4.2); Glucose 94 mg/dL (74-106); High Density Lipoprotein 102 mg/dL; PSA,Total - Annual Screen 0.79 ng/mL (0.00-4.00); Potassium 3.9 mmol/L (3.5-5.1); Protein, Total 7.4 g/dL (6.4-8.2); Sodium Level 138 mmol/L (136-145); Triglycerides 93 mg/dL; Very Low Density Lipoprotein 19 mg/dL (5-40)
== END | disposition home or self-care (01) ==
LOC: MFPLAB 10:01
PROVIDERS: PCP Family Medicine; Visit Provider Family Medicine
DX: I10 Essential (primary) hypertension (principal); N40.0 Benign prostatic hyperplasia without lower urinary tract symptoms
CPT/HCPCS: 36415; 80053; 80061; 84153; G0103

== ENCOUNTER 2023-06-05 10:30 | Outpatient (RCR) | payer BC, SELFPAY ==
--- NOTE | 2023-05-10 10:54 | HP.PTEVAL_ITS ---
Patient's Visit Information Visit Information Visit Information: MICHELL KLEIN Jr. is a 58 year old M referred to Physical Therapy by Dr. Kendell Pelletier MD with a diagnosis of LOW BACK PAIN. Date of Evaluation: 05/03/23 Physical Therapist: Dotty Marin PT, Cert MDT Visit Plan Frequency: 2-3x /Week Duration: 4-6 Weeks Plan: Neutral Spine Core Stability Exercises and Ciaran LE Hip Flexor, Hamstring and Calf Stretching to help reduce stress to the Lumbar Spine with all Daily Activities. Ciaran LE Strengthening. Instruction in Proper Posture Control, Body Mechanics, and Appropriate Activity Modifications. HEP Instruction Subjective Subjective: Work/Leisure: OFF WORK SINCE DECEMBER 2022. HOPING TO RETURN TO PRIOR JOB AT [employer] AFTER COMPLETING PT. Disability: CURRENTLY ON SHORT TERM DISABILITY FOR BACK. Present symptoms: L LOW BACK PAIN. L THIGH, LEG, FOOT, BIG TOE PAIN, NUMBNESS AND TINGLING. NO R LE SX'S. LLE WEAKNESS. 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 HE WORKED M-F THE FOLLOWING WEEK WITH A TENDER BACK. SUNDAY WK LATER COULDN'T STAND ON L LE WELL AND PROGRESSIVELY GOT WORSE. EVENTUALLY WENT TO THE HOSPITAL. FOR 2 MONTHS COULD BARELY MOVE AND WAS IN SEVERE PAIN. HE TRIED PT HERE AT [facility]. PAIN MGMT WITH DR. BALLARD WITH MADINA'S X 2. 1ST INJECTION DIDN'T HELP BUT SOME BENEFIT FROM SECOND INJECTION. USED WALKER FOR AWHILE TOO. 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 STANDING TO WASH DISHES. CLEANING MARTINEZ TO PAINT. BENDING OVER. Better: NAPROXEN, LYING DOWN, JETS IN BATH TUB Disturbed sleep: YES Previous history/Previous treatment: PATIENT DENIES HISTORY OF BACK PROBLEMS PRIOR TO GETTING DEONDRE IN TRUCK. DOES RE-CALL HAVING PT ONCE IN THE PAST FOR BACK AFTER FALLING OUT OF SHOWER BUT RECOVERED. Treatment this episode: SEE ABOVE Coughing/sneezing/straining: NEGATIVE CURRENTLY. Gait: IM STILL SLOW AND I STILL LIMP EVEN SHORT DISTANCES. Bowel or Bladder Dysfunction: NO Accidents: NO Unexplained weight loss: NO Imaging: LUMBAR MRI H - IMPRESSION: 1. Mild central canal stenosis at L4-L5 disc space level with small posterior bulging annulus. The AP canal diameter is 9 mm. Calcification of the posterior bulging annulus is obvious only on CT abdomen and pelvis of 05/18/2019. 2. Mild central canal stenosis at L3-L4 disc space level with an AP canal diameter of 9 mm, right posterior bulging annulus and mild stenosis of the right intervertebral neural foramen. 3. Mild asymmetric L5-S1 degenerative facet arthropathy, left greater than right. 4. No suspicious lumbar extruded disc fragment or disc protrusion. PMH/Recent major surgery: ASTHMA OTHER: PATIENT REPORTS DR. PELLETIER OFFERED TO DO SURGERY BUT GAVE HIM THE OPTION OF TRYING PT AND GIVING IT TIME. HE SAID THAT HE CAN REQUEST SURGERY IF HIS QUALITY OF LIFE DOES NOT GET BACK TO WHERE CAN LIVE WITH IT. PATIENT REPORTS HE DECLINED SURGERY AT THIS TIME BASED ON THE IMPROVEMENT HE HAS HAD SO FAR. Pain R knee: Pain Intensity (Out of 10): Unrated Pain Intensity Range: Unrated Comment: Did not rate but notes It's got me hopping. Objective Objective: Sitting/Standing Posture: FAIR. FORWARD HEAD AND ROUNDED SHOULDERS. ANTERIOR PELVIC TILT. NO RELEVANT LATERAL LUMBAR SHIFT. Other Observations: INDEP GAIT INTO PT WITHOUT ANY AD'S OR LOB. MILD LIMP ON LLE. Sensory deficit: HYPERSENSATIVITY OF LEFT LATERAL THIGH, LEG AND WHOLE FOOT COMPARED TO RIGHT WITH LIGHT TOUCH SENSATION TESTING. ROM deficit: CIARAN HIP FLEXOR TIGHTNESS. CIARAN HS TIGHTNESS L>R. Motor deficit: CIARAN LE STRENGTH GROSSLY 5/5 WITH MMT'ING EXCEPT HIPS: R 4/5, L 4-/5. Dural Signs: NEGATIVE CIARAN LE'S. Lumbar mvmt loss: flex - NIL ext - MIN R SG - MIN L SG - MIN PATIENT DENIES PAIN WITH LUMBAR ROM TESTING ALL PLANES EXCEPT FLEXION WHICH PROVOKES L LOW BACK AND BUTTOCK PAIN THAT IS NW WITH REPETITION. Core strength: FAIR Palpation: TENDERNESS WITH PALPATION OF LOWER LUMBAR, L SI AND L BUTTOCK REGIONS. TREATMENT: NEUROMUSCULAR REEDUCATION - RETRAINING OF MVMT AND POSTURE FOR SITTING, LYING AND STANDING ACTIVITIES. Balance/Special Test Scores Oswestry Low Back Score: 20 Goals Goal 1:: DECREASE C/O LOW BACK PAIN BY 25% TO EASE ADL'S. Goal Time Frame: 4-6 Weeks Goal 2:: IMPROVE LUMBAR OSWESTRY SCORE BY 5 POINTS TO EASE ADL'S Goal Time Frame: 4-6 Weeks Goal 3:: PATIENT WILL BE ABLE TO AMBULATE ON LEVEL SURFACES AND UP AND DOWN STEPS WITHOUT AD OR HR UNLIMITED. Goal Time Frame: 4-6 Weeks Goal 4:: RESTORE GOOD CORE STRENGTH AND FLEXABILITY FOR SAFE RETURN TO PLOF. Goal Time Frame: 4-6 Weeks Goal 5:: INDEP HEP Goal Time Frame: 4-6 Weeks Rehabilitation Potential Physical Therapy Diagnosis: LOW BACK PAIN. CORE WEAKNESS AND STIFFNESS. IMPAIRED GAIT. Rehabilitation Potential: Good Anticipated Interventions Patient/Client Instruction: Educate patient on: Condition, Plan of Care and Risk Factors For the Purpose of:: To improve self management Therapeutic Exercise to Include: Strength training, Body mechanics, Postural training, Flexibilty training, Neuromotor development, In an aquatic setting and Dynamic Lumbar Stabilization For the Purpose of:: To decrease pain, To increase ROM, To improve muscle performance and motor function, To increase tolerance to activity/condition/position, To improve ability of physical actions for home/community/work/leisure and To improve gait and locomotor functions Cryotherapy (ice pack, ice massage): Yes Thermo therapy (hot pack): Yes Ultrasound (thermal/non thermal): Yes For the Purpose of:: To decrease pain, To increase ROM, To improve muscle perfo rmance and motor function, To increase tolerance to activity/condition/position and To improve ability of physical actions for home/community/work/leisure Text: Thank you for the opportunity to evaluate your patient. For Medicare and Medicare HMO plans, please review the plan of care and approve it. It will need to be FAXED BACK to us at [phone] for Medicare purposes. For Medicare only, by signing this I certify the plan of care. Please let me know if there are questions or concerns regarding this plan of care. Physician Signature: Date:
--- NOTE | 2023-06-05 11:18 | HP.PTREVAL_ITS ---
Re-Evaluation Intro: Dr. Kendell Pelletier MD, It has been my pleasure to treat MICHELL KLEIN Jr. over the last 13 visits for LOW BACK PAIN. Please see the progress note below for an update on the physical therapy plan of care! Subjective Subjective: PATIENT REPORTS HE IS ABOUT 70% BETTER. REPORTS HE ISN'T HAVING PAIN BUT IS STILL LIMITED IN HIS BACK AND LEG MOBILITY. PATIENT REPORTS HE USE TO LIFT UP TO 75 LBS WITHOUT A LIFT AT WORK BUT ISN'T SURE WHAT JOB REQUIREMENTS WOULD BE GOING BACK. FOLLOW UP PENDING WITH DR. MCKEON 06/07/23. PATIENT REPORTS HE NEEDS TO GO BACK TO WORK FOR FINANCIAL REASONS AND HE THINKS DR. MCKEON IS GOING TO SEND HIM BACK TO WORK TO DO WHAT HE CAN DO. Objective Objective/Function: PATIENT WAS SEEN TODAY FOR RE-ASSESSMENT OF PROGRESS TOWARD THE SET PT GOALS AND THE NEED FOR FURTHER PHYSICAL THERAPY VS READINESS FOR DISCHARGE. PATIENT IS MAKING GOOD PROGRESS WITH PT BUT CONTINUES TO HAVE LIMITED LUMBAR ROM AND L LOW BACK/BUTTOCK SX'S ARE EASILY PROVOKED WITH TESTING PER BELOW. PHYSICIAN RE-ASSESSMENT RECOMMENDED. PATIENT IS A GOOD CANDIDATE FOR CONTINUED PT BASED ON PROGRESS MADE AND ROOM FOR FURHTER IMPROVEMENT. HE MAY ALSO BENEFIT FROM A FUNCTIONAL CAPACITY ASSESSMENT PRIOR TO RETURN TO WORK TO DETERMINE SAFETY FOR RETURN TO WORK. UPON EXAM TODAY: INDEP GAIT INTO PT WITHOUT ANY AD'S OR LOB. NO OBSERVABLE LIMP TODAY BUT PATIENT REPORTS HE CAN FEEL IT AND IT GETS WORSE THE DAY PROGRESSES. Sensory deficit: HYPERSENSATIVITY OF L LATERAL DISTAL LEG COMPARED TO R WITH LIGHT TOUCH TESTING. Motor deficit: CIARAN LE STRENGTH GROSSLY 5/5 WITH MMT'ING Dural Signs: NEGATIVE CIARAN LE'S. Lumbar mvmt loss: flex - NIL ext - MIN R SG - MIN L SG - MIN PATIENT DENIES PAIN WITH LUMBAR ROM TESTING ALL PLANES BUT STATES HE FEELS A PULLING IN THE L LOW BACK AND BUTTOCK AREA WITH FLEXION AND L SG TESTING. Core strength: GOOD BUT PATIENT REPORTS HE CAN FEEL IT IN HIS L LOW BACK AREA WITH CORE TESTING. Palpation: PATIENT DENIES TENDERNESS WITH PALPATION OF LUMBAR, SACRAL AND BUTTOCK AREAS. OTHER: PATIENT IS ABLE TO ASCEND AND DESCEND STEPS RECIPRICALLY WITHOUT HR OR DEVIATION. Plan Plan Plan: HOLD CHART PENDING PHYSICIAN RE-ASSESSMENT BY DR. MCKEON. Balance/Gait/Functional tests Balance/Special Test Scores Oswestry Low Back Score: 7 Goals Goals Goal 1:: DECREASE C/O LOW BACK PAIN BY 25% TO EASE ADL'S. Goal Time Frame: 4-6 Weeks Goal Progress: Goal Met Goal 2:: IMPROVE LUMBAR OSWESTRY SCORE BY 5 POINTS TO EASE ADL'S Goal Time Frame: 4-6 Weeks Goal Progress: Goal Met Goal 3:: PATIENT WILL BE ABLE TO AMBULATE ON LEVEL SURFACES AND UP AND DOWN STEPS WITHOUT AD OR HR UNLIMITED. Goal Time Frame: 4-6 Weeks Goal Progress: Goal Met Goal 4:: RESTORE GOOD CORE STRENGTH AND FLEXABILITY FOR SAFE RETURN TO PLOF. Goal Time Frame: 4-6 Weeks Goal Progress: Progressing Goal 5:: INDEP HEP Goal Time Frame: 4-6 Weeks Goal Progress: Progressing Anticipated Interventions Anticipated Interventions Patient/Client Instruction: Educate patient on: Condition, Plan of Care and Risk Factors For the Purpose of:: To improve self management Therapeutic Exercise to Include: Strength training, Body mechanics, Postural training, Flexibilty training, Neuromotor development, In an aquatic setting and Dynamic Lumbar Stabilization For the Purpose of:: To decrease pain, To increase ROM, To improve muscle performance and motor function, To increase tolerance to activity/condition/position, To improve ability of physical actions for home/community/work/leisure and To improve gait and locomotor functions Cryotherapy (ice pack, ice massage): Yes Thermo therapy (hot pack): Yes Ultrasound (thermal/non thermal): Yes For the Purpose of:: To decrease pain, To increase ROM, To improve muscle performance and motor function, To increase tolerance to activi ty/condition/position and To improve ability of physical actions for home/community/work/leisure Re-Evaluation Ending Re-evaluation ending: Please do not hesitate to contact me at [phone] by phone or if you have questions or concerns regarding this new plan of care! Sincerely, Dotty Marin, PT, Cert MDT
--- NOTE | 2023-10-02 15:45 | HP.PT.NRP ---
Patient Information Patient Information: MICHELL KLEIN Jr. was seen in my office for initial evaluation on 05/03/23. The following Plan of Care was established for this patient: POC Established Initial Frequency: 2-3x /Week Initial Duration: 4-6 Weeks Anticipated Interventions Patient/Client Instruction: Educate patient on: Condition, Plan of Care and Risk Factors For the Purpose of:: To improve self management Therapeutic Exercise to Include: Strength training, Body mechanics, Postural training, Flexibilty training, Neuromotor development, In an aquatic setting and Dynamic Lumbar Stabilization For the Purpose of:: To decrease pain, To increase ROM, To improve muscle performance and motor function, To increase tolerance to activity/condition/position, To improve ability of physical actions for home/community/work/leisure and To improve gait and locomotor functions Cryotherapy (ice pack, ice massage): Yes Thermo therapy (hot pack): Yes Ultrasound (thermal/non thermal): Yes For the Purpose of:: To decrease pain, To increase ROM, To improve muscle performance and motor function, To increase tolerance to activity/condition/position and To improve ability of physical actions for home/community/work/leisure Last Seen Last Seen: This patient was last seen in our office 06/05/23. Pertinent comments regarding their Physical therapy will appear below: This patient has not returned to Physical Therapy and is appropriate to return to MD for further follow-up as needed. At this point I will be discontinuing this patient from physical therapy. I would be happy to see this patient again in the future if found appropriate by the physician. Thank you! Dotty Marin, PT, Cert MDT Balance/Gait/Functional tests Balance/Special Test Scores Oswestry Low Back Score: 7
== END 2023-06-05 19:00 | disposition home or self-care (01) ==
LOC: PT 10:30
PROVIDERS: PCP Family Medicine; Visit Provider Orthopaedic Surgery Orthopaedic Surgery of the Spine
DX: M54.50 Low back pain, unspecified (principal)
CPT/HCPCS: 97110; 97112; 97113; 97162; 97164

== ENCOUNTER 2023-06-26 08:56 | Outpatient (RCR) | payer BC, SELFPAY ==
--- NOTE | 2023-06-26 12:39 | HP.OTFCE_ITS ---
Task Lift Floor (Occasional 1-33% of Day): max lift 75# Floor (Frequent 34-66% of Day): max lift 37.5# Floor (Constant 67-100% of Day): max lift 15.8# Floor PDL: Medium-Heavy Knee (Occasional 1-33% of Day): max lift 85# Knee (Frequent 34-66% of Day): max lift 42.5# Knee (Constant 67-100% of Day): max lift 17.9# Knee PDL: Medium-Heavy Waist (Occasional 1-33% of Day): max lift 75# Waist (Frequent 34-66% of Day): max lift 37.5# Waist (Constant 67-100% of Day): max lift 15.8# Waist PDL: Medium-Heavy Shoulder (Occasional 1-33% of Day): max lift 65# Shoulder (Frequent 34-66% of Day): max lift 32.5# Shoulder (Constant 67-100% of Day): max lift 13.4# Shoulder PDL: Medium Overhead (Occasional 1-33% of Day): max lift 35# Overhead (Frequent 34-66% of Day): max lift 17.5# Overhead (Constant 67-100% of Day): max lift 7.3# Overhead PDL: Light-Medium Comments: patient reporting fatigue in his low back and general full body fatigue after lifting Work Activity/Posture Bending: Constant Ability (67-100% of day) Squatting: Frequent Ability (34-66% of day) Kneeling: Frequent Ability (34-66% of day) Reaching out: Constant Ability (67-100% of day) Reaching up: Constant Ability (67-100% of day) Sitting: Constant Ability (67-100% of day) Walking: Constant Ability (67-100% of day) Standing: Constant Ability (67-100% of day) Comments: some discomfort with squatting and kneeling Reference Reference: Duration Sedentary Sedentary Light Light Light Medium Medium Medium Heavy Very Heavy Heavy Occasional (0-33% of day) Frequent (34-66% of day) Constant (67-100% of day) 10 # Negligible Negligible 15 # 8 # Negligible 20 # 10# Negli. 35 # 18 # 7 # 50 # 25 # 10 # 75 # 100 # >100 # 38 # 50 # >50 # 15 # 20 # >20 # Patient Information Height: 1.7 m Weight:: 102.076 kg Hand Dominance: right Medical History Medical History Including Restrictions: Patient hit an island in his truck in the parking lot of his work resulting in jarring/injuring his lower back December of 2022. He worked M - F the following week with a tender back. Sunday a week later couldn't stand on L LE well and progressively got worse. Finally went to the hospital and then for 2 months could barely move was in severe pain. [place] [facility] [place] and pain mgmt with Dr. Nichols with MADINA's x 2. First injection didn't help but got some benefit from second injection. Patient then saw Dr. Krishnan surgeon who found a bone fragment in his lumbar spine. Dr. Krishnan mentioned option for surgery but explained it may not help. Patient is trying conservative approach to try to get better without surgery. Patient had surgery in the L shoulder surgery ~10 years. Patient had surgery on R knee after quad tendon slipped off knee cap after slipping on ice ~ 5-10 years ago. Patient had injury in R eye resulting in blurry vision. Patient also dislocated L CMC joint many years ago, still feels some soreness. 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 Patient was on short term disability from December 2022 - May 26 2023, now interested in returning to work in some capacity, still healing from his back injury and at risk of reinjury. Patient is on feet all day, requiring lifting all day and repetitive use of arms. Patient has to reach in/out of machine to put parts in/out. Patient does have to lift from the ground at times. Patient reports ~45 pounds max lifting requirement at work. Patient reports frequent bending, twisting, and reaching. Behavioral Behavioral: Patient alert and cooperative throughout. No behavioral concerns reported or observed. ADLS ADLS: Lives independently, drives Patient has 3 stairs to get into the house without HR. Patient has a flight of stairs to get to bedroom and bathroom, handrail present. Patient has a tub shower, no equipment. Patient was using a walker for awhile but no longer needs it. Physical Examination Physical Examination: well appearing, ambulated independently throughout outpatient clinic. Indep with functional transfers and able to lift functional objects without difficulty. ROM: range of motion intact Strength: Right: shoulder flexion 31.7/ extension 31.2 elbow flexion 41.3/ extension 26.4 wrist flexion 19.8/ extension 23.6 hip flexion 35.5 knee flexion 32.8/ extension 32.1 Left: shoulder flexion 31.8/ extension 27.7 elbow flexion 35.1/ extension 34.8 wrist flexion 27.3/ extension 24.1 hip flexion 33.3 knee flexion 40.5/ extension 40.1 Right Instrument Checker Strength Average: 94.33 Right Instrument Checker Strength Percentile: 48th Left Instrument Checker Strength Average: 100.66 Left Instrument Checker Strength Percentile: 70th Right Lateral Pinch Average: 14.00 Right Lateral Pinch Percentile: <10th Left Lateral Pinch Average: 12.00 Left Lateral Pinch Percentile: <10th Right Tripod Pinch Average: 12.00 Right Tripod Pinch Percentile: <10th Left Tripod Pinch Average: 10.66 Left Tripod Pinch Percentile: <10th Comments: reported some soreness in L CMC from old hand injury Sensation: no concerns, normal sensation Fine Motor: no concerns Balance: Patient reports he feels his balance is off. It's not as good as it used to be but he is not at risk of falling. Non Material Handling Activities Bending: completed multiple reps without assistance or difficulty Squatting: squat multiple times without assistance or difficulty started feeling a little pain in R knee after 8 reps of squat 5/10 pain. Kneeling: kneeling 6 reps each side using external support, some soreness in R knee still present Reaching out/up: Able to reach up and out 10 times slow and then 10 times fast without difficulty or pain. Walking: walked for 15 min at regular walking pace no need for seated rest break, no increased pain. Patient did report some tingling in left foot after prolonged walking Standing: stood for ~30 minutes during assessment without need for rest beak or increase in pain. Indep maintaining standing balance Sitting: sat for ~60 min during assessment without need for repositioning. Indep maintaining sitting balance Climbing Stairs: ascended and descended stairs using a reciprocal pattern, independently Dynamic Occasional Lifting Capacity Floor Lift: max lift weight 75#, fair lifting mechanics Knee Lift: max lift 85# Waist Lift: max lift 75# Shoulder Lift: max lift 65# Overhead Lift: max lift 35# Carrying: max lift 40# Comments: No increase in pain reported with lifting tasks, however, patient reports feeling fatigue in back and fatigue overall. Reports being out of shape.
== END 2023-06-26 19:00 | disposition home or self-care (01) ==
LOC: OT 08:56
PROVIDERS: PCP Family Medicine; Referring Provider Family Medicine; Visit Provider Family Medicine
DX: M48.061 Spinal stenosis, lumbar region without neurogenic claudication (principal)
CPT/HCPCS: 97750

== ENCOUNTER → 2023-09-05 | Outpatient (CLI) | payer BC, SELFPAY ==
--- NOTE | 2023-09-05 13:54 | VDLE_ITS ---
Reason For Study: RLE Swelling RIGHT LEFT GSV is normal. FV is compressible, spontaneous, phasic, CFV is compressible, spontaneous, phasic, competent and demonstrates normal competent and demonstrates normal augmentation. augmentation. FV is compressible, spontaneous, phasic, competent and demonstrates normal augmentation. POP V is compressible, spontaneous, phasic, competent and demonstrates normal augmentation. T/P Trunk is compressible. PTV is compressible. RT PerV is compressible. Non vascularized hypoechoic area noted at Rt medial knee joint measuring approximately 4.53cm x 1.26cm. Procedure This is a venous duplex using B-mode, color flow and spectral Doppler. Exam performed in department. VL/Venous Duplex US, Unilateral Interpretation Summary Deep veins of the right lower extremity are patent and compressible segmentally . There is no evidence of right lower extremity deep vein thrombosis. The right great sapheno us vein appears patent and compressible segmentally. Non vascularized hypoechoic area noted at right medial knee joint measuring ridge roximately 4.53cm x 1.26cm. Ordering Physician: Alexandre Hanna Referring Physician: Alexandre Hanna Performed By: Ham Harley RVT
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
== END | disposition home or self-care (01) ==
LOC: CVS 13:50
PROVIDERS: PCP Family Medicine; Referring Provider Family Medicine; Visit Provider Family Medicine
DX: M79.89 Other specified soft tissue disorders (principal)
CPT/HCPCS: 93971

== ENCOUNTER → 2023-09-11 | Outpatient (CLI) | payer BC, SELFPAY ==
[2023-09-11 17:55] LABS: Absolute Lymphocyte Count 1.54 X10^3/uL (0.83-4.51); Basophil# 0.03 X10^3/uL; Basophil% 0.6 % (0-1); Eosinophil# 0.08 X10^3/uL; Eosinophils% 1.6 % (0-5); Hematocrit 41.2 % (40-54); Hemoglobin 13.2 g/dL (13.0-16.5); Lymphocyte # 1.54 X10^3/ul (0.83-4.51); Lymphocyte % 30.4 % (19-41); Mean Corpuscular Hgb 30.3 pg (27.0-32.0); Mean Corpuscular Volume 94.5 fL (80-94); Mean Platelet Vol. 10.8 fl (6.2-12.0); Monocyte# 0.39 X10^3/uL; Monocyte% 7.7 % (0-10); NRBC Flagged by Analyzer 0 % (0-5); Neutrophil # 3.02 X10^3/uL (2.7-7.7); Neutrophil % 59.5 % (47-70); Platelet Count 234 K/mm3 (150-450); RBC Distribution Width CV 12.3 % (11.6-14.6); Red Blood Count 4.36 M/mm3 (4.6-6.2); White Blood Count 5.1 K/mm3 (4.4-11.0)
[2023-09-11 18:39] LABS: ALB/GLOB Ratio 1.1 RATIO (0.9-2.4); AST(SGOT) 27 U/L (15-37); Alanine Aminotransfer ALT/SGPT 56 U/L (16-61); Alkaline Phosphatase 113 U/L (45-117); Anion Gap 7 (5-15); BUN 18 mg/dL (7-18); BUN/Creat Ratio 17.5 RATIO (10-20); Calcium,Total 9.5 mg/dL (8.5-10.1); Chloride 106 mmol/L (98-107); Creatinine, Serum 1.03 mg/dL (0.70-1.30); EST Glomerular Filtration Rate 79 mL/min (>60); Est Glom Filt Rate - Afr Amer 96 mL/min (>60); Globulin 3.5 g/dL (2.2-4.2); Glucose 90 mg/dL (74-106); Potassium 3.9 mmol/L (3.5-5.1); Protein, Total 7.5 g/dL (6.4-8.2); Sodium Level 142 mmol/L (136-145)
== END | disposition home or self-care (01) ==
LOC: MFPLAB 14:41
PROVIDERS: PCP Family Medicine; Visit Provider Family Medicine
DX: M79.89 Other specified soft tissue disorders (principal)
CPT/HCPCS: 36415; 80053; 85025